=== PATIENT | female | born 2000 | race American Indian/Alaskan Native ===

== ENCOUNTER 2024-08-30 09:57 | Inpatient (IN) | payer MEDICAID, OTHER ==
[2024-08-30] MEDS: Oxytocin/Normal Saline 30 UNIT/500 ML BAG IV SCH (10:23)
[2024-08-30] MEDS ORDERED: Sodium Chloride 0.9% 10 ML Syringe FLUSH PRN (10:54)
[2024-08-30] MEDS ORDERED: Tranexamic Acid 1,000 MG in Sodium Chloride 0.9% 100 ML IV PRN (10:54)
[2024-08-30] MEDS ORDERED: Carboprost Tromethamine 250 MCG/1 ML Amp IM PRN (10:54)
[2024-08-30] MEDS ORDERED: Simethicone 80 MG Tab.Chew PO PRN (10:54)
[2024-08-30] MEDS ORDERED: Acetaminophen 325 MG Tab PO PRN (10:54)
[2024-08-30] MEDS ORDERED: Misoprostol 100 MCG Tab RECTAL PRN (10:54)
[2024-08-30] MEDS ORDERED: Oxytocin 10 Units/1 ML SDV IM PRN (10:54)
[2024-08-30 11:15] LABS: HEMOGLOBIN 8.8 g/dL (12.0-16.0); MEAN CORPUSCULAR HEMOGLOBIN 23.8 pg (27.0-34.0); MEAN CORPUSCULAR HGB CONC 30.3 g/dL (33.0-35.0); MEAN CORPUSCULAR VOLUME 78.4 fL (80-100); RED BLOOD CELL COUNT 3.7 10^6/uL (4.2-5.4); WHITE BLOOD CELL COUNT,WBC 11.2 10^3/uL (5.0-10.0)
[2024-08-30 11:32] LABS: A/G RATIO 0.43; ALANINE AMINOTRANSFERASE,ALT 26 U/L (14-59); ALKALINE PHOSPHATASE 293 U/L (46-116); ASPARTATE AMNIOTRANSFERASE,AST 30 U/L (15-37); BILIRUBIN TOTAL 0.4 mg/dL (0.2-1.0); BLOOD UREA NITROGEN,BUN 10 mg/dL (7-18); BUN/CREATININE RATIO 11.4 (No establ ref range); CALCIUM 8.7 mg/dL (8.5-10.1); CARBON DIOXIDE,CO2 21 mmol/L (21-32); CHLORIDE,CL 106 mmol/L (98-107); CREATININE 0.88 mg/dL (0.55-1.02); ESTIMATED GFR 96 mL/min (>=60); GLUCOSE RANDOM 106 mg/dL (70-99); PROTEIN TOTAL,TP 6.6 g/dL (6.4-8.2); SODIUM,NA 139 mmol/L (136-145)
[2024-08-30] MEDS: Magnesium Sulfate/Water Premix 4 GM in Premix Bag 1 BAG IV ONE (12:29)
[2024-08-30] MEDS: Magnesium Sulfate/Water Premix 20 GM in Premix Bag 1 BAG IV SCH (12:50)
[2024-08-30] MEDS: Ibuprofen 800 MG Tab PO SCH ×2 (13:42→22:08)
[2024-08-30] MEDS: Benzocaine/Menthol 20%-0.5% Spray 78 GM Cannister TOP PRN (13:43)
[2024-08-30] MEDS: Magnesium Sulfate/Water Premix 20 GM/500 ML BAG ONE (13:49)
[2024-08-30] MEDS: Magnesium Sulfate/Water Premix 100 ML ONE (13:49)
[2024-08-30] MEDS: Prenatal Multivitamin with Calcium/Folic Acid/Iron Tab PO SCH (13:50)
[2024-08-30 17:38] LABS: AMPHETAMINES,URINE POSITIVE (NEGATIVE); BARBITURATES,URINE NEGATIVE (NEGATIVE); BENZODIAZEPINE,URINE NEGATIVE (NEGATIVE); MDMA (ECSTASY), URINE POSITIVE (NEGATIVE); METHADONE,URINE NEGATIVE (NEGATIVE); METHAMPHETAMINES,URINE POSITIVE (NEGATIVE); OPIATES,URINE NEGATIVE (NEGATIVE); OXYCODONE,URINE NEGATIVE (NEGATIVE); PHENCYCLIDINE,URINE NEGATIVE (NEGATIVE); TCA,URINE NEGATIVE (NEGATIVE)
[2024-08-30] MEDS: Docusate Sodium 100 MG Cap PO PRN (22:08)
[2024-08-31] MEDS: Calcium Gluconate 10% 1 GM/10 ML SDV IVPUSH STA (11:56)
[2024-08-31] MEDS: Calcium Gluconate 10% 1 GM/10 ML SDV ONE (12:24)
[2024-09-01 11:40] VITALS: BP 131/81; PULSE 88
== END 2024-09-01 12:45 | disposition home or self-care (01) | DRG 776 ==
LOC: DL.OB 09:57
PROVIDERS: ADMIT Student in an Organized Health Care Education/Training Program; ATTEND Student in an Organized Health Care Education/Training Program
PROC: 10E0XZZ Delivery of Products of Conception, External Approach (ICD-10-PCS; principal; 2024-08-30)
DX: O13.5 Gestational [pregnancy-induced] hypertension without significant proteinuria, complicating the puerperium (principal); O98.43 Viral hepatitis complicating the puerperium; O9A.23 Injury, poisoning and certain other consequences of external causes complicating the puerperium; O62.3 Precipitate labor; T47.4X1A Poisoning by other laxatives, accidental (unintentional), initial encounter; B18.2 Chronic viral hepatitis C
CPT/HCPCS: 36415; 80053; 80305-QW; 83735; 85027; A9270-GY; J0612; J2590; J3475

== ENCOUNTER 2025-06-20 23:21 | Emergency (ER) | payer BC, MEDICAID ==
[2025-06-20] MEDS ORDERED: Sodium Chloride 0.9% 10 ML Syringe FLUSH PRN (23:50)
[2025-06-20] MEDS: Ketorolac 30 MG/ML SDV IVPUSH ONE (23:55)
[2025-06-21] MEDS: Lactated Ringers 1,000 ML IV ONE (00:20)
[2025-06-21 00:24] LABS: BASOPHILS PERCENT AUTO 0.2 % (0.0-1.0); EOSINOPHILS PERCENT AUTO 0.2 % (1.0-3.0); LYMPHOCYTES PERCENT AUTO 13.5 % (20.5-50.1); MONOCYTES PERCENT AUTO 5.8 % (2-8); NEUTROPHILS PERCENT AUTO 80.3 % (42.2-75.2); PLATELET COUNT,PLT 309 10^3/uL (150-450); RED BLOOD CELL COUNT 5.02 10^6/uL (4.2-5.4); WHITE BLOOD CELL COUNT,WBC 12.5 10^3/uL (5.0-10.0)
[2025-06-21 00:27] LABS: APPEARANCE,URINE SLIGHTLY CLOUDY (CLEAR); GLUCOSE,URINE NEGATIVE (NEGATIVE); OCCULT BLOOD,URINE NEGATIVE (NEGATIVE)
[2025-06-21 00:36] LABS: A/G RATIO 1.0; ALANINE AMINOTRANSFERASE,ALT 45 U/L (14-59); ASPARTATE AMNIOTRANSFERASE,AST 29 U/L (15-37); BILIRUBIN TOTAL 0.3 mg/dL (0.2-1.0); BLOOD UREA NITROGEN,BUN 5 mg/dL (7-18); CARBON DIOXIDE,CO2 25 mmol/L (21-32); CHLORIDE,CL 102 mmol/L (98-107); CREATININE 0.63 mg/dL (0.55-1.02); EST CRCL DRUG DOSING (CG) 115.87 mL/min; GLUCOSE RANDOM 108 mg/dL (70-99); POTASSIUM,K 3.5 mmol/L (3.5-5.1); PROTEIN TOTAL,TP 8.4 g/dL (6.4-8.2); SODIUM,NA 137 mmol/L (136-145)
[2025-06-21 00:38] LABS: ESTIMATED GFR 129 mL/min (>=60)
[2025-06-21 00:39] LABS: HCG QUALITATIVE,SERUM NEGATIVE (NEGATIVE)
[2025-06-21] MEDS: Iopamidol 612 MG/ML 100 ML Bottle IVPUSH ONE (00:42)
[2025-06-21 00:59] LABS: LACTIC ACID 1.1 mmol/L (0.4-2.0)
[2025-06-21] MEDS: metroNIDAZOLE/Normal Saline 500 MG in Premix Bag 1 BAG IV ONE (01:46)
[2025-06-21 03:30] VITALS: BP 117/68; PULSE 96
== END 2025-06-21 03:40 ==
LOC: DL.ED 23:21
DX: K35.30 Acute appendicitis with localized peritonitis, without perforation or gangrene (principal); N83.201 Unspecified ovarian cyst, right side; Z91.018 Allergy to other foods
CPT/HCPCS: 36415; 71260; 74177; 80053; 81003; 83605; 83690; 83735; 84703; 85025; 96365; 96375; 99285; J0696; J1836; J1885; J7120; Q9967